=== PATIENT | male | born 1960 | race Caucasian/White ===

== ENCOUNTER → 2019-11-06 | Day surgery (SDC) | payer OTHER ==
[~2019-11-06] MED LIST: IPRATRPIUM/ALBUTEROL 0.5/2.5MG 3 ML NEBU. NEB PRN; IV RINGERS SOLUTION,LACTATED 1,000 ML IV SCH; MULT-245 PO; MV-M1TAB7 PO; OMEG1CAP50 PO; ONDANSETRON PF 4 MG/2 ML VIAL. IV PRN; PROPOFOL 10,000 MCG/ML (20ML) VIAL IV ONE
[2019-11-06 13:15] VITALS: BP 133/73
== END | disposition home or self-care (01) ==
LOC: SURG 10:25
PROVIDERS: ATTEND Internal Medicine Gastroenterology
DX: Z12.11 Encounter for screening for malignant neoplasm of colon (principal); K63.89 Other specified diseases of intestine; K31.89 Other diseases of stomach and duodenum; K21.0 Gastro-esophageal reflux disease with esophagitis; Z79.899 Other long term (current) drug therapy
CPT/HCPCS: 43235; 45378; J2704; J7120; U0003-CS